=== PATIENT | female | born 1990 ===

== ENCOUNTER 2016-06-16 09:56 | Emergency (ER) | payer MEDICAID ==
[2016-06-16 09:56] VITALS: BMI 30.7
[2016-06-16 10:00] VITALS: BP 131/83; PULSE 76; TEMP 97.9; O2SAT 100
--- NOTE | 2016-06-16 10:50 | C.PDOC ---
History Of Present Illness 26 yr old female presents to the ER with complaints of exacerbated left lower back pain since yesterday. Patient states the pain started 1 day after shoveling snow and is associated with left knee pain when supine last night but has now resolved. Patient states the back pain occasionally radiates to left hip and is worse with flexion. Patient denies direct trauma, vomiting, abdominal pain, diarrhea, dysuria, hematuria, weakness or numbness. EXAC L LOWER BACK PAIN SINCE YEST. PS NEW ONSET L LOWER BACK PAIN X 1 WEEK BUT EXAC X 1 DAY AFTER SNOW SHOVELING. NEW ONSET ASSOC L KNEE PAIN WHEN SUPINE LAST NIGHT, NOW RESOLVED. L LOWER BACK, OCC RADIATION L HIP. WORSE W FLEXION. NO DIRECT TRAUMA NO WEAK/ NUMB. NO RELIEF TYLENOL EXAM NAD NONTOXIC BACK LIMITED FULL FLEX DUE TO PAIN +SPASM L LOWER BACK NO LS TEND NEURO NEG Time Seen by Provider: 06/16/16 10:31 Chief Complaint (Nursing): Back Pain History Per: Patient History/Exam Limitations: no limitations Onset/Duration Of Symptoms: Sudden Onset (1 day after shoveling ) Current Symptoms Are (Timing): Still Present Past Medical History Reviewed: Historical Data, Nursing Documentation, Vital Signs Vital Signs: Last Vital Signs Temp 97.9 F 06/16/16 10:00 Pulse 76 06/16/16 10:00 Resp 20 06/16/16 10:00 BP 131/83 06/16/16 10:00 Pulse Ox 100 06/16/16 10:51 Surgical History: Tonsillectomy - [facility] Procedures ARTIF RUPT MEMBRANES NEC (04/19/13) EPISIOTOMY (04/19/13) MONITORING NOS (04/19/13) Family History: States: No Known Family Hx - Social History Hx Alcohol Use: No Hx Substance Use: No - Immunization History Hx Tetanus Toxoid Vaccination: No Hx Influenza Vaccination: No Hx Pneumococcal Vaccination: No Review Of Systems Except As Marked, All Systems Reviewed And Found Negative. Gastrointestinal: Negative for: Vomiting, Abdominal Pain, Diarrhea Genitourinary: Negative for: Dysuria, Hematuria Musculoskeletal: Positive for: Back Pain (left lower back pain ) Neurological: Negative for: Weakness, Numbness Physical Exam - Physical Exam Appears: Non-toxic, No Acute Distress Skin: Warm, Dry Head: Atraumatic, Normacephalic Neck: Normal, Normal ROM, No Paracervical Tenderness, No Step Off Deformity, Supple Chest: Symmetrical, No Tenderness Cardiovascular: Rhythm Regular, No Murmur Back: Muscle Spasm (Left lower back), Other (Limited full flexion due to pain. No LS tenderness.) Extremity: Normal ROM, No Tenderness, No Swelling Neurological/Psych: Oriented x3, Normal Speech, Normal Motor ED Course And Treatment O2 Sat by Pulse Oximetry: 100 Medical Decision Making Medical Decision Making: PLAN: * Toradol IM Disposition Counseled Patient/Family Regarding: Diagnosis, Need For Followup, Rx Given - Disposition Referrals: YOUR,PMD [Other] Disposition: HOME/ ROUTINE Disposition Time: 10:50 Condition: IMPROVED Prescriptions: Cyclobenzaprine [Flexeril] 10 mg PO TID #15 tab Naproxen 500 mg PO BID #30 tab Instructions: Acute Low Back Pain (ED) - Clinical Impression Clinical Impression: Low back pain - Scribe Statement The provider has reviewed the documentation as recorded by the Brittany Ospina Provider Attestation: All medical record entries made by the Evensibannika were at my direction and personally dictated by me. I have reviewed the chart and agree that the record accurately reflects my personal performance of the history, physical exam, medical decision making, and the department course for this patient. I have also personally directed, reviewed, and agree with the discharge instructions and disposition.
[2016-06-16 11:12] VITALS: RESP 18
== END 2016-06-16 11:12 | disposition home or self-care (01) ==
LOC: C.ER 09:56
DX: M54.5 Low back pain (principal)

== ENCOUNTER 2018-05-05 09:56 | Emergency (ER) | payer MEDICAID ==
[2018-05-05 09:56] VITALS: BMI 30.7
--- NOTE | 2018-05-05 10:36 | C.PDOC ---
History Of Present Illness 27 y/o female pt presents to the ER c/o flu-like symptoms for x1 day. Associated sx includes chest pain, productive cough, vomiting, body ache, decreased appetite and chills. Pt LMP was 04/03/18. Pt denies fever, nausea, abdominal pain, SOB, dizziness and light headedness. HPI: Influenza Chief Complaint: Flu-like Symptoms History Per: Patient Exam Limitations: no limitations Past Medical History Reviewed: Historical Data, Nursing Documentation, Vital Signs Vital Signs: Last Vital Signs Temp 99.6 F 05/05/18 10:03 Pulse 98 H 05/05/18 10:03 Resp 20 05/05/18 10:03 BP 109/73 05/05/18 10:03 Pulse Ox 98 05/05/18 10:03 Surgical History: Tonsillectomy - [facility] Procedures ARTIF RUPT [facility]BR[facility]ES NEC (04/19/13) EPISIOTOMY (04/19/13) MONITORING NOS (04/19/13) Family History: States: Unknown Family Hx - Social History Hx Alcohol Use: No Hx Substance Use: No - Immunization History Hx Tetanus Toxoid Vaccination: No Hx Influenza Vaccination: No Hx Pneumococcal Vaccination: No Review Of Systems Except As Marked, All Systems Reviewed And Found Negative. Constitutional: Positive for: Chills, Malaise, Other (no appetite ). Negative for: Fever Cardiovascular: Positive for: Chest Pain. Negative for: Light Headedness Respiratory: Positive for: Cough (productive). Negative for: Shortness of Breath Gastrointestinal: Positive for: Vomiting. Negative for: Nausea, Abdominal Pain Neurological: Negative for: Dizziness Physical Exam - Physical Exam Appears: Non-toxic, No Acute Distress Skin: Warm, Dry, No Rash Head: Normacephalic Eye(s): bilateral: Normal Inspection Ear(s): Bilateral: Normal Nose: Normal Oral Mucosa: Moist Throat: Normal, No Erythema, No Exudate Neck: Normal ROM, Supple Chest: Symmetrical Cardiovascular: Rhythm Regular Respiratory: Normal Breath Sounds, No Rales, No Rhonchi, No Wheezing Gastrointestinal/Abdominal: Soft, No Tenderness Back: No CVA Tenderness Neurological/Psych: Oriented x3, Normal Speech, Normal Cognition, Normal Motor, Normal Sensation - ECG O2 Sat by Pulse Oximetry: 98 (RA) Pulse Ox Interpretation: Normal - Other Rad chest X-Ray: Read By Radiologist - Progress ED Course And Treament: Impression: flu Plans: -- CXR -- Zofran -- POC urine test POC results: (-) negative -- Flu swab Flu swab results: (+) flu A -- TamiFlu was given to pt Chest XR results: Accession No. 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 TECHNIQUE: Chest PA and lateral FINDINGS: LUNGS: No active pulmonary disease. PLEURA: No significant pleural effusion identified. No pneumothorax apparent. CARDIOVASCULAR: No aortic atherosclerotic calcification present. Normal cardiac size. No pulmonary vascular congestion. OSSEOUS STRUCTURES: No significant abnormalities. VISUALIZED UPPER ABDOMEN: Normal. OTHER FINDINGS: None. IMPRESSION: No acute cardiopulmonary disease appreciated. Disposition - Disposition Referrals: Matthew James MD [Staff Provider] - Disposition: HOME/ ROUTINE Disposition Time: 11:59 Condition: STABLE Additional Instructions: Follow up with PMD within 1-2 days. Return too ED if feel worse. 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 - Scribe Statement The provider has reviewed the documentation as recorded by the Scribe Figueroa Do All medical record entries made by the Scribe were at my direction and personally dictated by me. I have reviewed the chart and agree that the record accurately reflects my personal performance of the history, physical exam, medical decision making, and the department course for this patient. I have also personally directed, reviewed, and agree with the discharge instructions and disposition.
[2018-05-05 11:54] VITALS: BP 104/64; PULSE 83; RESP 18; TEMP 98.9
[2018-05-05 12:02] VITALS: O2SAT 98
--- NOTE | 2018-05-05 14:06 | RAD ---
Date of service: 05/05/2018 HISTORY: cough/congestion COMPARISON: No prior. TECHNIQUE: Chest PA and lateral FINDINGS: LUNGS: No active pulmonary disease. PLEURA: No significant pleural effusion identified. No pneumothorax apparent. CARDIOVASCULAR: No aortic atherosclerotic calcification present. Normal cardiac size. No pulmonary vascular congestion. OSSEOUS STRUCTURES: No significant abnormalities. VISUALIZED UPPER ABDOMEN: Normal. OTHER FINDINGS: None. IMPRESSION: No acute cardiopulmonary disease appreciated.
== END 2018-05-05 12:10 | disposition home or self-care (01) ==
LOC: C.ER 09:56
DX: J10.1 Influenza due to other identified influenza virus with other respiratory manifestations (principal)